=== PATIENT | male | born 1995 | race African-American/Black ===

== ENCOUNTER 2017-10-22 08:42 | Emergency (ER) | payer OTHER ==
[~2017-10-22] VITALS: Ht 162.6 cm; Wt 64.0 kg
== END 2017-10-22 09:20 | disposition home or self-care (01) ==
LOC: ED 08:42
DX: N50.811 Right testicular pain (principal)

== ENCOUNTER 2018-09-28 19:22 | Emergency (ER) | payer OTHER ==
[~2018-09-28] VITALS: Ht 172.7 cm; Wt 68.0 kg
[2018-09-28 19:40] VITALS: TEMP 100.5
[2018-09-28 21:21] LABS: PLATELET COUNT 171 K/uL (142-355)
[2018-09-28 21:26] LABS: POTASSIUM 3.5 mmol/L (3.6-5.2)
[2018-09-28 22:35] VITALS: BP 122/50
== END 2018-09-28 22:43 | disposition home or self-care (01) ==
LOC: ED 19:22
PROVIDERS: Emergency Medicine
DX: J02.0 Streptococcal pharyngitis (principal)
CPT/HCPCS: 36415; 80053; 81000; 82150; 83690; 85027; 87502; 87651; 96365; 96374; 96375; 99284; J0561; J2175; J2405